=== PATIENT | female | born 1970 | race Caucasian/White ===

== ENCOUNTER 2017-08-20 08:42 | Outpatient (CLI) | payer OTHER | END 2017-08-20 08:43 | disposition home or self-care (01) | LOC: DTY/OP 08:42 | PROVIDERS: ATTEND Surgery | DX: E66.01 Morbid (severe) obesity due to excess calories (principal) | CPT/HCPCS: 97802 ==

== ENCOUNTER 2017-08-25 16:15 | Inpatient (IN) | payer OTHER ==
[2017-08-25 16:29] VITALS: BMI 43.9
[2017-09-02] MEDS ORDERED: Fentanyl 100 MCG/2 ML VIAL ONE ×2 (06:48→08:06)
[2017-09-02] MEDS ORDERED: Lidocaine 1% w/Epinephrine 1:200K 30 ML VIAL ONE (07:03)
[2017-09-02] MEDS ORDERED: Bupivacaine 0.25% HCL 30 ML VIAL ONE (07:03)
[2017-09-02] MEDS ORDERED: Midazolam HCl 2 mg/2 ml Vial ONE (07:27)
[2017-09-02] MEDS ORDERED: Heparin 5,000 UNITS/ML VIAL ONE (07:27)
[2017-09-02] MEDS ORDERED: Scopolamine 1.5 mg/72 hour Patch ONE (07:27)
[2017-09-02] MEDS ORDERED: CEFAZOLIN/Water 2 GM/20 ML SYRINGE ONE (07:40)
[2017-09-02] MEDS ORDERED: Zolpidem Tartrate 5 MG TAB PO PRN (09:21)
[2017-09-02] MEDS ORDERED: Naloxone HCl 0.4 mg/ml Vial IV PRN (09:21)
[2017-09-02] MEDS ORDERED: diphenhydrAMINE 25 MG CAP PO PRN (09:21)
[2017-09-02] MEDS ORDERED: Ondansetron HCl/PF 4 MG/2 ML Vial IVP PRN ×3 (09:21→16:19)
[2017-09-02] MEDS ORDERED: Promethazine HCl 25 MG/ML VIAL IM PRN ×3 (09:21→16:19)
[2017-09-02] MEDS ORDERED: diphenhydrAMINE 50 MG/ML VIAL IVP PRN (09:21)
[2017-09-02] MEDS ORDERED: Fentanyl 5000 MCG/250 ML CADD IVPB PRN (09:21)
[2017-09-02] MEDS ORDERED: diphenhydrAMINE 50 MG/ML VIAL IM PRN (09:21)
--- NOTE | 2017-09-02 09:24 | OP ---
DATE OF PROCEDURE: 09/02/2017 PREOPERATIVE DIAGNOSES: 1. Morbid obesity with body mass index of 44. 2. Asthma. POSTOPERATIVE DIAGNOSES: 1. Morbid obesity with body mass index of 44. 2. Asthma. PROCEDURES: 1. Laparoscopic sleeve gastrectomy with Trenary staple line reinforcements and 38 [place] bougie. 2. Esophagogastroduodenoscopy. SURGEON: Darian Quinones M.D. ANESTHESIA: General. ESTIMATED BLOOD LOSS: Minimal. COMPLICATIONS: None. FINDINGS: Normal postoperative esophagogastroduodenoscopy. INDICATION: The patient is a 47-year-old female who presents for weight loss surgery. She has atten ded our informational seminar. She has had a preoperative psychologic evaluation and attended our ed ucation classes. She understands risks, benefits, and alternatives to sleeve gastrectomy TECHNIQUE: The patient was taken to the operating room and placed supine on the table. After genera l anesthetic was obtained, the arms and legs were double strapped to bariatric table. OG tube used t o decompress the stomach. The abdomen is prepped and draped in a sterile fashion. Left subcostal 5- mm Optiview trocar was placed in the usual fashion without injury and high-flow pneumoperitoneum was obtained. Right subcostal 5-mm port as well as 2 abdominal 12-mm ports were placed under direct visu alization. A 5-mm incision was made at the xiphoid and the Nathansen was used to raise the liver off the GE junction. Short gastrics were taken down midbody of stomach to the left nery of the diaphrag m. The left nery, posterior fundus, and angle of His were completely dissected. Short gastrics were taken down to a distance of 6 cm proximal to the pylorus. A 38 [place] bougie was brought in and its tip left in the antrum of the stomach. OG tube was removed. Multiple loads of an [place] stapling device with Trenary staple line reinforcements used to make the sleeve. The first was a green load. Th e rest were all gold loads. The first was fired up to distance of 6 cm proximal to the pylorus angle d up towards the incisura. Care was taken to avoid being too close to the incisura. Multiple loads were then fired up along the bougie. Stomach was completely transected at the umbilicus. The stomac h was removed from the left abdominal incision. This fascial defect was closed using GraNee needle a nd 0 Vicryl tie. There was no bleeding on the staple line. EGD scope was passed in the esophagus an d stomach to the level of the duodenum without obstruction. There was no stricture at the incisura. There was no air leakage through the staple line. EGD scope was used to decompress the stomach, it was pulled and removed. Nathansen retractor was removed under direct visualization without bleeding. GraNee needle and 0-Vicryl ties also used to close the fascial defect from the right abdominal 12-m m port site because there was some bleeding when it was attempted to be removed. This stopped after the Vicryl suture was placed. All ports were removed under camera visualization and then with no jesi oing bleeding. Pneumoperitoneum was let down. All the transfascial sutures were tied down. All inc isions were irrigated and closed using 4-0 Monocryl and Dermabond. The patient was en route to [facility] in stable condition. All instrument counts, needle counts, and lap counts are correct.
[2017-09-02] MEDS ORDERED: Meperidine HCl/PF 25 MG/ML VIAL SLOW IVP PRN (09:27)
[2017-09-02] MEDS ORDERED: Promethazine HCl 25 MG/ML VIAL SLOW IVP PRN (09:27)
[2017-09-02] MEDS ORDERED: Communication Order-Pharmacy FS SCH (09:30)
[2017-09-02] MEDS ORDERED: Promethazine HCl 25 MG/ML VIAL ONE (09:38)
[2017-09-02] MEDS ORDERED: ePHEDrine/0.9% NaCl/PF SYRINGE 50 mg/10 ml ONE (14:39)
[2017-09-02] MEDS ORDERED: Lidocaine 1% PF 5 ML VIAL ONE (14:39)
[2017-09-02] MEDS ORDERED: PHENYLEPHRINE-NS 100 MCG/ML 10 ML SYRINGE ONE (14:39)
[2017-09-02] MEDS ORDERED: Propofol 200 MG/20 ML VIAL ONE (14:39)
[2017-09-02] MEDS ORDERED: Ketorolac Tromethamine 30 MG/ML VIAL ONE (14:39)
[2017-09-02] MEDS ORDERED: Glycopyrrolate 0.2 MG/ML 5 ML SYRINGE ONE (14:39)
[2017-09-02] MEDS ORDERED: Dexamethasone 20 MG/5 ML VIAL ONE (14:39)
[2017-09-02] MEDS ORDERED: Hydrocodone-Acetamin 15 ML UDCUP PO PRN (16:19)
[2017-09-02] MEDS ORDERED: Dextrose 50% Abboject 50 ML SYRINGE SLOW IVP PRN (16:19)
[2017-09-02] MEDS ORDERED: hydrALAZINE 20 MG/ML VIAL SLOW IVP PRN (16:19)
[2017-09-02] MEDS ORDERED: Dextrose 5% in Water 1,000 ML IV PRN (16:19)
[2017-09-02] MEDS ORDERED: Pantoprazole 40 MG VIAL IVP SCH ×3 (16:30→21:00)
[2017-09-02] MEDS: D5 1/2 NS w/20 mEq KCL 1,000 ML IV SCH (18:54)
[2017-09-02] MEDS ORDERED: FLU VACC QS2017-18 36 mo. & older 0.5 ML SYRINGE IM ONE (19:30)
[2017-09-02] MEDS ORDERED: Enoxaparin Sodium 40 MG/0.4 ML SYRINGE SC SCH (21:00)
[2017-09-02] MEDS ORDERED: Montelukast Sodium 10 mg Tablet PO SCH (21:00)
[2017-09-03] MEDS: D5 1/2 NS w/20 mEq KCL 1,000 ML IV SCH (01:02)
[2017-09-03 06:48] LABS: #Eosinphils 0.1 thou/uL (0.0-0.7); #Monocytes 0.6 thou/uL (0.11-0.59); #Neutrophils 6.9 thou/uL (1.40-6.50); %Basophils 0.5 % (0.0-1.0); %Eosinophils 0.6 % (0.0-10.0); %Lymphocytes 20.8 % (21.0-51.0); %Monocytes 6.1 % (0.0-10.0); %Neutrophils 72.1 % (42.0-75.0); Hemoglobin 12.7 g/dL (12.0-16.0); Mean Corpuscular HGB CONC 33.3 g/dL (32.0-36.0); Mean Corpuscular Hemoglobin 30.3 pg (27.0-31.0); Mean Corpuscular Volume 91.1 fl (81.0-99.0); Mean Platelet Volume 7.6 fL (7.4-10.4); Platelet Count 307 thou/uL (130-400); RBC Distribution Width 11.8 % (11.5-14.5); Red Blood Cell (RBC) Count 4.18 mill/uL (4.20-5.40); White Blood Cell (WBC) Count 9.5 thou/uL (4.8-10.8)
[2017-09-03 07:00] LABS: Anion Gap 11 mmol/L (10-20); BUN (Urea Nitrogen) 10 mg/dL (7.0-18.7); Calc. Creatinine Clearance 168 mL/min (70-130); Calcium 8.9 mg/dL (7.8-10.44); Carbon Dioxide 25 mmol/L (22-29); Chloride 107 mmol/L (98-107); Estimated GFR-MDRD 88; Glucose 109 mg/dL (70-105); Sodium 139 mmol/L (136-145)
[2017-09-03 08:38] VITALS: TEMP 98
[2017-09-03] MEDS ORDERED: Pantoprazole 40 MG VIAL IVP SCH (09:00)
--- NOTE | 2017-09-03 09:07 | RAD ---
ESOPHOGRAM: History: Obesity. Bariatric surgery. FINDINGS: Single column contrast evaluation shows post-operative changes consistent with recent gastric sleeve procedure. There is no evidence of obstruction or leak. Fluoro time = 0.2 minutes. POS: ANNY
--- NOTE | 2017-09-03 12:17 | DIS ---
DATE OF ADMISSION: 09/02/2017 DATE OF DISCHARGE: 09/03/2017 ADMISSION DIAGNOSIS: Morbid obesity. DISCHARGE DIAGNOSIS: Morbid obesity. PROCEDURE: Laparoscopic gastric sleeve by Dr. Quinones without complication. CONDITION AT DISCHARGE: Improved. STAFF: Dr. Darian Quinones. HOSPITAL COURSE: Patient did well postop, her swallow study revealed no obvious obstruction or leaka ge on postoperative day #1, started on liquid diet. Discharged to home. Follow up with me in 2 week s.
[2017-09-03] MEDS ORDERED: GASTROGRAFIN 30 ML BOT ONE (12:50)
[2017-09-03 12:53] VITALS: BP 124/73
== END 2017-09-03 13:06 | disposition home or self-care (01) | DRG 621 ==
LOC: SURG A 09-02 06:01 → SURG B 09-02 15:55
PROVIDERS: ADMIT Surgery; ATTEND Surgery
PROC: 0DB64Z3 Excision of Stomach, Percutaneous Endoscopic Approach, Vertical (ICD-10-PCS; principal; 2017-09-02)
PROC: 0DJ08ZZ Inspection of Upper Intestinal Tract, Via Natural or Artificial Opening Endoscopic (ICD-10-PCS; 2017-09-02)
DX: E66.01 Morbid (severe) obesity due to excess calories (principal); E78.5 Hyperlipidemia, unspecified; Z68.41 Body mass index [BMI] 40.0-44.9, adult; J45.909 Unspecified asthma, uncomplicated; F32.9 Major depressive disorder, single episode, unspecified
CPT/HCPCS: 36415; 74241; 80048; 85025; 88307; 88312; C9113; J0131; J1100; J1200; J1644; J1650; J1885; J2001; J2250; J2405; J2550; J2704; J3010; S0020